=== PATIENT | female | born 1950 | race Caucasian/White ===

== ENCOUNTER → 2023-01-13 | Outpatient (CLI) | payer MEDICARE, BC, SELFPAY ==
--- NOTE | 2023-01-13 12:50 | US_ITS ---
INDICATION: prolapse EXAMINATION: Ultrasound US Pelvis Non-OB Complete TECHNIQUE: Transabdominal sonographic images of the pelvis. COMPARISON: None. FINDINGS: A pessary is seen within the vagina. UTERUS: Anteverted. 8.2 x 2.6 x 5.0 cm. No evidence of a uterine mass or fibroid. Endometrium is unremarkable. Endometrial stripe thickness of 3 mm. RIGHT OVARY: Unremarkable. LEFT OVARY: Not visualized due to overlying bowel gas. FREE FLUID: No significant free fluid. US/Pelvic (Non ) IMPRESSION: 1. Unremarkable appearance of the uterus and right ovary. 2. Nonvisualization of the left ovary. 3. Pessary seen within the vagina. Electronically Signed: Colin Jacobs DO at 0:42 EDT ,
== END | disposition home or self-care (01) ==
LOC: US 12:50
PROVIDERS: PCP Family Medicine; Referring Provider Obstetrics & Gynecology; Visit Provider Obstetrics & Gynecology
DX: N81.2 Incomplete uterovaginal prolapse (principal)
CPT/HCPCS: 76856

== ENCOUNTER 2023-01-21 16:16 | Observation (INO) | payer MEDICARE, BC, SELFPAY ==
--- NOTE | 2023-01-07 10:59 | EKG12_ITS ---
Test Reason : PREOP Blood Pressure : / mmHG Vent. Rate : 065 BPM Atrial Rate : 065 BPM P-R Int : 132 ms QRS Dur : 134 ms QT Int : 470 ms P-R-T Axes : 050 -31 027 degrees QTc Int : 488 ms Normal sinus rhythm Left axis deviation Right bundle branch block Abnormal ECG Confirmed by LIDA OLIVIER, ORTIZ ([id number]), video effects editor HERB ZURITA ([id number]) on 01/08/2023 1:33:26 PM Referred By: Arti Sage Confirmed By:MERARI HILTON MD
[2023-01-07 12:32] LABS: Absolute Lymphocyte Count 1.39 X10^3/uL (0.83-4.51); Basophil# 0.04 X10^3/uL; Basophil% 0.8 % (0-1); Eosinophil# 0.12 X10^3/uL; Eosinophils% 2.4 % (0-5); Hematocrit 39.9 % (37-47); Hemoglobin 12.6 g/dL (12.0-15.0); Lymphocyte # 1.39 X10^3/ul (0.83-4.51); Lymphocyte % 28.4 % (19-41); Mean Corp Hgb Conc 31.6 g/dL (32-36); Mean Corpuscular Hgb 30.3 pg (27.0-32.0); Mean Corpuscular Volume 95.9 fL (81-99); Monocyte# 0.36 X10^3/uL; Monocyte% 7.3 % (0-10); NRBC Flagged by Analyzer 0 % (0-5); Neutrophil # 2.97 X10^3/uL (2.7-7.7); Neutrophil % 60.7 % (47-70); Platelet Count 240 K/mm3 (150-450); RBC Distribution Width SD 49.1 fl (35.1-43.9); Red Blood Count 4.16 M/mm3 (4.2-5.4); White Blood Count 4.9 K/mm3 (4.4-11.0)
[2023-01-07 13:10] LABS: Magnesium 2.5 mg/dL (1.6-2.6)
[2023-01-07 13:14] LABS: AST(SGOT) 34 U/L (15-37); Alanine Aminotransfer ALT/SGPT 49 U/L (13-56); Albumin, Serum 3.9 g/dL (3.2-5.0); Alkaline Phosphatase 104 U/L (45-117); Anion Gap 3 (5-15); BUN 16 mg/dL (7-18); BUN/Creat Ratio 19.3 RATIO (10-20); Calcium,Total 9.1 mg/dL (8.5-10.1); Chloride 108 mmol/L (98-107); Creatinine, Serum 0.83 mg/dL (0.55-1.02); EST Glomerular Filtration Rate 72 mL/min (>60); Est Glom Filt Rate - Afr Amer 87 mL/min (>60); Globulin 3.8 g/dL (2.2-4.2); Glucose 91 mg/dL (74-106); Potassium 4.2 mmol/L (3.5-5.1); Protein, Total 7.7 g/dL (6.4-8.2); Sodium Level 140 mmol/L (136-145); Thyroid Stim Hormone (TSH) 3.15 uIU/mL (0.358-3.74)
--- NOTE | 2023-01-19 09:54 | PCM.HP.BLA ---
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 Required: No Is patient in pain?: No Allergies No Known Allergies Allergy (Unverified 01/07/23 10:31) Medications ascorbate calcium (vitamin C) 500 mg tablet 500 mg PO DAILY 12/15/21 [History Confirmed 01/07/23] hydroxychloroquine 200 mg tablet 200 mg PO BID 12/15/21 [History Confirmed 01/07/23] ibandronate 150 mg tablet (Boniva) 150 mg PO QMONTH 12/15/21 [History Confirmed 01/07/23] levothyroxine 100 mcg capsule 100 mcg PO DAILY 12/15/21 [History Confirmed 01/07/23] metoprolol succinate 25 mg tablet,extended release 24 hr 25 mg PO DAILY 12/15/21 [History Confirmed 01/07/23] vitamins A,C,G-blmr-lilpwv 4,296 mcg-226 mg-90 mg capsule (PreserVision AREDS) 1 cap PO BID 12/15/21 [History Confirmed 01/07/23] PFSH Medical History (Updated 01/07/23 @ 10:[address] Arti Sage MD) Anemia Macular degeneration Myocardial infarction Osteopenia Sicca syndrome Thyroid disorder Surgical History (Updated 12/15/21 @ 10:[address] Arti Sage MD) H/O heart bypass surgery History of History of toe surgery S/P breast biopsy, right S/P hip replacement S/p total knee replacement, bilateral Family History (Updated 12/15/21 @ 10:14 by Faina Carbajal) Mother Breast cancerFather Heart disease Social History (Updated 12/15/21 @ 10:15 by Faina Carbajal) Smoking Status: Never smoker alcohol intake: never substance use type: does not use caffeine: Yes what type of physical activity do you participate in: none seatbelt use: always do you feel safe at home: Yes additional social history: - Ramin CONSTANTINO josselyn combo needs 20 minutes Details: PATRICK TYLER is a 72 year old who presents for preop visit for surgery planning LAVHBSO for prolapse. Female Reproductive History Menopausal Symptoms: No night sweats History 4 Elective abortions Hx Para 3 Spontaneous abortions Hx # Term Pregnancies Ectopic pregnancies Hx # Pregnancies Multiple births # of living children Past Pregnancies Del. Date Name GA/Weeks Outcome Route Bth Weight Gen [facility] Unknown Zhanna Unknown Giorgio Unknown Loretta (may) Unknown Jimenez Delivery Date: Last Updated by: Faina Carbajal lived for 1 hour ROS Const Constitutional: Reports system reviewed and no additional complaints, except as documented; Denies fatigue, headache(s) or night sweats ENT ENT: Reports system reviewed and no additional complaints, except as documented Cardio Card: Denies chest pain Resp Resp: Denies cough or dyspnea GI GI: Denies abdominal pain, bloating, change in stool character, constipation, fecal incontinence, nausea or vomiting : Reports prolapse symptoms, urinary frequency, urinary incontinence, urinary urgency and vaginal dryness; Denies nipple discharge, pelvic pain, sexual dysfunction, vaginal discharge, vaginal odor or vaginal pruritus Musc Musc: Denies arthralgias, back pain or muscle weakness Skin Skin/Breast: Denies alopecia, change in hair, dry skin, breast mass, breast pain, breast skin changes or nipple discharge Neuro Neuro: Reports system reviewed and no additional complaints, except as documented Psych Psych: Denies anxiety or depression Endo Endo: Denies cold intolerance, excessive sweating, heat intolerance or polydipsia Demarcus/Lymph Hematologic/Lymphatic: Denies easy bleeding, Denies easy bruising and Denies lymphadenopathy Exam Const General: cooperative, healthy appearing, comfortable, no acute distress and well developed Orientation: alert [facility] Head: normal to inspection, normocephalic and atraumatic Ears: hearing grossly normal bilaterally and external ears normal Nose: external nose normal and nares normal Face and sinus: normal facial exam Neck Neck: normal visual inspection, full ROM, no lymphadenopathy and trachea midline Thyroid: thyroid normal Resp Effort & Inspection: normal respiratory effort Auscultation: clear to auscultation bilaterally Cardio Rate: regular rate Rhythm: regular rhythm Heart Sounds: S1 normal and S2 normal GI Inspection: normal to inspection and non-distended Palpation: soft, no hepatosplenomegaly, no hepatomegaly, not rigid and nontender General: bladder normal to palpation External Female Exam: abnormal external appearance (atrophic introitus), normal appearance of the urethra and no lesions Urethra: normal appearance of the urethra Speculum Exam - Vagina: abnormal appearance of the vagina, normal vaginal discharge, vagina atrophic and no lesions Speculum Exam - Cervix: normal appearance of the cervix Bimanual Exam- Vagina & Uterus: normal bimanual exam, uterine size normal, bladder normal to palpation, uterine shape normal, uterine mobility normal and non-tender Bimanual Exam- Adnexa, other: normal adnexae, no masses, rectocele, cystocele and vaginal apex descent Pelvic Support: cystocele, rectocele and vaginal apex descent Musc Other: gross motor intact no deficits, full bilateral strength Skin General: no rashes or lesions noted and atrophy Neuro General: patient alert, patient awake, moves all extremities and no focal motor deficits Motor: muscle tone normal throughout Extrem General: normal to inspection and no pedal edema Psych Appearance: grossly normal Mental Status: mental status grossly normal Affect: normal affect Speech and Movement: speech and movement normal Coding Level of Care Code No Charge Diagnoses Incomplete uterovaginal prolapse N81.2 Assessment and Plan Assessment and Plan (1) Incomplete uterovaginal prolapse: Status: Acute Comment: plan LAVHBSO combo case josselyn, Cutting Tool Sharpener recommend remaining on ASA 81mg uninterrupted Plan After discussing the patient's diagnosis and treatment plan options, patient wishes to proceed with surgical management. I have discussed with the patient the risks, benefits, and alternatives of the procedure which include but are not limited to risks of anesthesia, bleeding, infection, possible damage to bowel, bladder, or surrounding vasculature which could lead to additional surgery to evaluate any complications. Patient agrees to procedure and wishes to proceed. ACOG/uptodate references given for additional information regarding procedure.
[2023-01-21] VITALS (19 sets, daily range): BP systolic 94–112; BP diastolic 47–64; PULSE 49–62; RESP 12–18; TEMP 36.1–36.9; O2SAT 91–100; BMI 35.4
--- NOTE | 2023-01-21 | HYST_PTH ---
PATIENT: PATRICK TYLER LOC: MS3 U#:[id number] AGE/SX: 72/F [place] [facility] [place]: Dr. Arti Sage MD : [id number] BED: 1 DIS: 01/22/2023 SPEC #: [id number] RECD: 01/21/23 12:23 STATUS: JOSE RHODES #: [id number] VALERIA: 01/21/23 00:[address]: Arti Sage DEPT: SURGICAL PATHOLOGY RECD BY: Jose Spears ENTERED: 01/21/23 12:24 SP TYPE: HYSTERECT OTHR DR: MD Dr. Andre Schafer MD Tissues: Uterus, NOS Procedures: Surgery Specimen Level V HEADER OPERATION: ERAS, laparoscopic assisted vaginal hysterectomy, salpingo-oophorectomy PRE-OP DIAGNOSIS: Incomplete uterovaginal prolapse TISSUE SUBMITTED: Uterus, cervix, bilateral fallopian tubes, ovaries MICROSCOPIC DIAGNOSIS Uterus, hysterectomy: Cervix - nabothian cysts, mild chronic inflammation and squamous metaplasia. Endometrial polyp - adenomyoma with simple hyperplasia without atypia. Endometrium - inactive endometrium with focal simple cystic hyperplasia without atypia. Myometrium - superficial adenomyosis. Right ovary - corpora albicantia. Right fallopian tube - No pathologic change. Left ovary - corpora albicantia. Left fallopian tube - No pathologic change. AM:jessee 01/22/2023 MICROSCOPIC DESCRIPTION Slides are reviewed. GROSS DESCRIPTION Received in fixative is one container labeled with the patient's name and designated uterus. The specimen consists of a uterus with attached cervix and attached right and left fallopian tubes and ovaries. The uterus with cervix measures 7.5 x 5.5 x 3.0 cm and weighs 50.0 gm. The ectocervix is oval in contour. The endocervical canal measures 2.6 cm in length and is grossly unremarkable. The triangular endometrial cavity measures 3.0 x 2.5 cm. The posterior endometrial surface contains a pink, soft, fleshy polyp measuring 1.4 x 1.0 x 1.0 cm. The myometrium measures 1.5 cm in average thickness and is free of mass lesions. The crinkled yellow-white right ovary measures 2.5 x 1.5 x 0.7 cm. Serial sections do not reveal mass lesions. The right fallopian tube measures 4.5 cm in length and is grossly unremarkable. The left ovary is similar in appearance to the right ovary and measures 2.5 x 1.5 x 0.7 cm. Serial sections do not reveal mass lesions. The left fallopian tube segment measures 4.0 cm in length and 0.4 cm in average diameter and is similar in appearance to the right fallopian tube. [facility] sections are submitted in nine cassettes as follows: 1 - anterior cervix, 2 - posterior cervix, 3 - endometrial polyp, 4?&?5 - anterior myometrial wall, 6 & 7 - posterior myometrial wall, 8 - right fallopian tube and ovary, 9 - left fallopian tube and ovary. / AM:jessee 01/21/2023 TC:1 CPT: 22397
[2023-01-21 06:32] LABS: Bedside Glucose 68 mg/dL (74-106)
[2023-01-21] MEDS: dexAMETHasone 4 MG/ML Vial 8 MG IV (06:49)
[2023-01-21] MEDS: Lactated Ringers 1,000 ML 40 ML IV ×2 (06:49→08:00)
[2023-01-21] MEDS: Enoxaparin 40 MG/0.4 ML Syringe SC (06:52)
[2023-01-21] MEDS: Celecoxib 200 MG Capsule 400 MG PO (06:54)
[2023-01-21] MEDS: Gabapentin 600 MG Tablet PO (06:55)
[2023-01-21] MEDS: Acetaminophen 500 MG Tablet 1000 MG PO (06:55)
[2023-01-21] MEDS: Magnesium 1 GM over 15 mins IV (06:56)
[2023-01-21] MEDS: Cefazolin 2 GM in 0.9% Normal Saline 100 ML IV (07:23)
--- NOTE | 2023-01-21 07:58 | PCM.OPRPT ---
Problems Associated Problem List Diagnoses (1) Incomplete uterovaginal prolapse: Report of Operation Date of Procedure: 01/21/23 Pre-Operative Diagnosis: see A/P Post-Operative Diagnosis: same Surgery/Procedure Performed:: DIAN Description of Surgical Findings:: atrophy and prolapse Surgeon: Arti Sage Type of Anesthesia: General Specimen's removed: uterus, tubes, ovaries Drains: alonso Fluids Replaced: crystalloid Description of Procedure: Patient received preoperative antibiotics and SCDs were on preoperatively. Patient was taken back to the operating room and placed in the dorsal lithotomy position. General anesthesia was induced and patient was prepped and draped in normal sterile fashion. Uterine manipulator was placed inside the uterus and Alonso catheter placed in the bladder. The umbilicus was grasped with towel clamps and an intraumbilical incision was made after injecting with quarter percent Marcaine and a Veress needle entered into the abdomen confirmed to be intra-abdominal with a low opening pressure. Abdomen was insufflated with CO2 gas and the Veress needle removed and the 5 mm trocar was placed under direct visualization without complication. Right and left lower quadrants were transilluminated and injected with quarter percent Marcaine and 5 mm ports placed under direct visualization. omental to anterior abdominal wall adhesion was taken down with LigaSure without complication. Pelvis was well visualized see operative findings for additional information. Bilateral fallopian tubes and ovaries were identified and transected across the IP ligament with the LigaSure device. The broad ligament was opened up by transecting the round ligament bilaterally and skeletonizing the uterine vessels bilaterally and creating a bladder flap using the LigaSure device. The uterine arteries were transected bilaterally with good visualization of the bladder and the ureters were seen to be inferior lateral to the operative area. Attention was then paid to the vaginal portion of the procedure and the cervix was grasped with Lorena clamps and circumferentially injected with dilute vasopressin. A circumferential incision was made and the vaginal mucosa was mobilized off posteriorly and the cul-de-sac entered into sharply and a longneck speculum placed. The anterior cul-de-sac was then identified and entered into sharply. The uterosacral ligaments were clamped cut and suture ligated with 0 Monocryl bilaterally followed by the cardinal ligaments which were clamped cut and suture ligated bilaterally with 0 Monocryl. The uterus serially descended and was removed without difficulty. Pelvic sidewall pedicles were checked and noted to have excellent hemostasis. The vaginal mucosa was reapproximated incorporating the posterior peritoneum. This was reapproximated using 0 Vicryl [id number] sutures. Excellent hemostasis was noted. The pelvis and cul-de-sac were well visualized and no significant active bleeding noted . Pressure was taken down and the areas visualized and noted of excellent hemostasis. All ports were removed under direct visualization without complication and the abdomen was desufflated of air. The instruments were removed from the abdomen and the vaginal sweep was negative. Port sites on the abdomen were closed with 4-0 Monocryl interrupted sutures and Steri's and windows were applied. see dr toure note for her portion of the procedure Grafts/Implants Used: none Complications none Admit VTE Documentation VTE Present on Admission: No VTE Mechan Device Prophylaxis: SCD's VTE Pharm Prophylaxis ordered?: Yes Procedures Urinary/Genital [id number]: 95001 LAVH+BS/O <250gr Uterus
--- NOTE | 2023-01-21 08:50 | OP.PCM_ITS ---
Report of Operation Date of Procedure: 01/21/23 Pre-Operative Diagnosis: Incomplete uterovaginal prolapse, urethral hypermobili ty, stress urinary incontinence Post-Operative Diagnosis: Same Surgery/Procedure Performed:: Posterior repair, bilateral sacrospinous ligament fixation with dermis, mid urethral sling, cystoscopy with bilateral ureteral catheterization Surgeon: Ammy Luna Type of Anesthesia: General Estimated Blood Loss (mL): 50 cc Description of Procedure: The patient is a 72-year-old female with pelvic organ prolapse who has undergone testing preoperatively and now presents for surgical intervention. The patient was taken to the operating room and placed on the operating room table. Anesthesia monitored the head, neck, airway, IV access and vital signs throughout the case. Once anesthesia was appropriately administered, the patient was placed into dorsolithotomy and Trendelenburg position. She was appropriately prepped and draped. A Cervantes catheter was placed under sterile conditions. Dr. Sage performed her portion of the procedure, and the patient was turned over to oh. The Cervantes catheter was removed and the cystoscope was inserted through the urethra under direct visualization into the urinary bladder. The bladder was visualized in its entirety and found to be without evidence of injury or foreign body. A whistle-tip catheter was used to gently cannulate each ureteral orifice and advanced to 20 cm bilaterally without evidence of injury, obstruction or bleeding. At this time the cystoscope and the whistle-tip catheter was removed and the Cervantes catheter was replaced. The way the cuff line was positioned, access to the sacrospinous ligaments was better anatomically from the posterior. The posterior vaginal wall submucosa was injected with lidocaine with epinephrine for hydrostatic dissection and hemostatic control. A midline incision was made and sharp and blunt dissection was performed bilaterally until the apex was reached. The ischial spines were palpable bilaterally and the sacrospinous ligaments were identified and freed from surrounding tissues. There is no evidence of ureter lying across either 1. Using the Emmett device, the O Ethibond suture was passed through the ligament and out into the vaginal space. The sutures were then passed through the dermis and tied into position. At this time the cystoscopy was once again repeated with bilateral ureteral catheterization revealing no evidence of obstruction. Attention was turned back towards the posterior repair with a Cervantes catheter carmella ng replaced. The dermis was trimmed to length and sutured into position to the white lines bilaterally. The perineal body was brought together using interrupted 2-0 Vicryl sutures. At this time the Ethibond sutures were brought through the apex and full-thickness fashion through the vaginal mucosa bilaterally. The midline incision was then closed with running interlocking 2-0 Vicryl. Bilaterally the Ethibond sutures were tied into position. At this time, the apical and posterior prolapse was reduced. It became clear that there was very minimal anterior defect, not enough to provide a successful improvement in the anatomy with repair. The decision was made to abort this portion of the repair. The mid urethra was isolated and injected submucosally with lidocaine. A midline incision was made. Sharp and blunt dissection was performed on either side of the urethra with care being taken to avoid entrance into the urethra or the vaginal mucosa. Using the trocars provided with the Altis mid urethral sling, the mesh was put into position through the obturator complexes bilaterally and was positioned in a flat nature against the urethra. The tensioning suture was then cut. The incision was closed using running interlocking 2-0 Vicryl. At this time the Cervantes catheter was removed and once again a cystoscopy was performed revealing no evidence of injury or foreign body within the urinary bladder or the urethra. Good coaptation was seen at the level of the sling. The cystoscope was then removed and the Cervantes catheter was reinserted and the balloon inflated. At this time the vagina was packed with plain packing and estrogen cream. She was awakened and taken to the recovery room in good condition. There were no complications during this procedure. Grafts/Implants Used: Dermis, Altis mid urethral sling Complications None Admit VTE Documentation VTE Pharm Prophylaxis ordered?: Yes
--- NOTE | 2023-01-21 08:57 | DCINST_ITS ---
Discharge Instructions Diet Discharge Diet: No restrictions Activity Discharge Activity: May Shower and May Take a Tub Bath (No tub bathing, swimming or hot tubs) May resume sexual activity in: 8 weeks Dressing / Incision Call your doctor if your incision/area has: Continuous Slow Oozing, Sudden Increased Bleeding, Increased Pain/ Swelling, Increased Redness, Foul Smelling Discharge and Swelling at the incision site Call your doctor if you observe: Fever of 101 or Higher, Inability to urinate and Inability to have a bowel movement Follow Up Care Please Follow Up With: Ammy Luna MD When: The office will call to make arrangements. Also follow-up with Dr. Sage. Test Results: Test results from this visit will be discussed in further detail at your follow- up appointment, if applicable. Discharge Plan Admission Admit Date/Time: 01/21/23 16:16 Attending Provider: Arti Sage Primary Care Provider: Andre Sanchez Consulting Providers: Ammy Luna; Jun Ching Discharge Orders/Prescriptions Prescriptions: New oxycodone-acetaminophen [Percocet] 5-325 mg tablet 1 tab PO Q8H PRN (Reason: pain) 5 Days Qty: 14 0RF cephalexin [cephalexin] 500 mg capsule 500 mg PO Q12 3 Days Qty: 6 0RF Continued levothyroxine 100 mcg capsule 100 mcg PO DAILY metoprolol succinate 25 mg tablet extended release 24 hr 25 mg PO DAILY hydroxychloroquine 200 mg tablet 200 mg PO BID PreserVision AREDS 14,320-226-200 [id number]-iu-[id number] capsule 1 cap PO BID ibandronate [Boniva] 150 mg tablet 150 mg PO QMONTH calcium phos,dibas-vitamin D3 77-400 mg-unit tablet 1 tab PO DAILY Restasis MultiDose 0.05 % drops 1 drp EACH EYE Q12H Referrals / Follow Up: Andre Sanchez MD [Primary Care Provider] - Disposition Disposition (needs filled in before D/C Order can be placed): Home, Self Care
[2023-01-21] MEDS: Bupivacaine 0.25% 30 ML Vial (09:15)
[2023-01-21] MEDS: Vasopressin 20 UNITS/ML Vial (10:00)
[2023-01-21] MEDS: Ondansetron 4 MG/2 ML Vial IV (10:18)
[2023-01-21] MEDS: Estrogens,Conj. 1 Tube 1 DOSE (10:30)
[2023-01-21] MEDS: Lactated Ringers 1,000 ML 100 ML IV ×2 (11:40→21:40)
[2023-01-21 12:24] LABS: Absolute Lymphocyte Count 0.51 X10^3/uL (0.83-4.51); Absolute Neutrophil Count 3.2 X10^3/uL (2.0-7.7); Basophil# 0.01 X10^3/uL; Basophil% 0.3 % (0-1); Eosinophil# 0.02 X10^3/uL; Eosinophils% 0.5 % (0-5); Hematocrit 36.4 % (37-47); Hemoglobin 11.8 g/dL (12.0-15.0); Lymphocyte # 0.51 X10^3/ul (0.83-4.51); Lymphocyte % 13.5 % (19-41); Mean Corp Hgb Conc 32.4 g/dL (32-36); Mean Corpuscular Hgb 31.2 pg (27.0-32.0); Mean Corpuscular Volume 96.3 fL (81-99); Mean Platelet Vol. 10.5 fl (6.2-12.0); Monocyte# 0.06 X10^3/uL; Monocyte% 1.6 % (0-10); NRBC Flagged by Analyzer 0 % (0-5); Neutrophil # 3.17 X10^3/uL (2.7-7.7); Neutrophil % 83.8 % (47-70); POSITIVE DIFFERENTIAL YES; Platelet Count 170 K/mm3 (150-450); RBC Distribution Width CV 14.1 % (11.6-14.6); Red Blood Count 3.78 M/mm3 (4.2-5.4); White Blood Count 3.8 K/mm3 (4.4-11.0)
[2023-01-21 12:25] LABS: Differential Indicated SCAN CRITERIA MET
[2023-01-21 12:34] LABS: Anion Gap 5 (5-15); BUN 15 mg/dL (7-18); BUN/Creat Ratio 17.6 RATIO (10-20); Calcium,Total 8.2 mg/dL (8.5-10.1); Chloride 110 mmol/L (98-107); Creatinine, Serum 0.85 mg/dL (0.55-1.02); EST Glomerular Filtration Rate 70 mL/min (>60); Est Glom Filt Rate - Afr Amer 85 mL/min (>60); Estimated Creatinine Clearance 59.89 ml/min; Glucose 121 mg/dL (74-106); Magnesium 2.7 mg/dL (1.6-2.6); Potassium 3.8 mmol/L (3.5-5.1); Sodium Level 141 mmol/L (136-145)
[2023-01-21 12:53] LABS: Troponin-I HS 8 pg/mL (3.0-54.0)
--- NOTE | 2023-01-21 12:58 | SUR.PHASEI ---
MART Roa at bedside to apply new dressing to left lap site. after 30 mins of pressure being held. per Dr. Alona roa will come over when she is available.
--- NOTE | 2023-01-21 13:27 | PCM.PN.BLA ---
Progress Note cardiac exam WNL, RRR CTAB t wave inversions seen on ekg, troponin negative, discussed with hospitalist- to come evaluate for postop placement on floor and serial monitoring
--- NOTE | 2023-01-21 13:43 | PCM.CONS.GEN ---
Assessment & Plan Assessment/Plan (1) Abnormal EKG: PLAN: EKG today showed normal sinus rhythm with concern for Coyry-Ssghmdgyr-[id number]. EKG performed this month on third showed normal sinus rhythm with right bundle branch block. NSTEMI evidence of any right bundle branch block at this time. No other acute changes noted. Fainting, patient's EKG actually does look better with the exception of the delta wave. Things reasonable to the patient on telemetry and cycle troponins that have been ordered already. If there has been evidence of significant cardiac enzyme elevation, may be reasonable to consult cardiology for further evaluation but patient is currently asymptomatic. Recommend just monitor troponins and patient's clinical status. At this point, nothing overtly concerning for cardiac evaluation. 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 PLAN: Plan Other chronic conditions Sjogren syndrome: Continue with eyedrops Hypothyroidism: Continue levothyroxine. Osteopenia s/p LAVHBSO and uterovaginal prolapse repair: per Ear Specialist and Thank you for the consult. The Hospitalist service will follow along with you. HPI Consult Data Date of Consult: 01/21/23 HPI Narrative Reason for Consultation: abnormal EKG HPI Narrative: PATRICK TYLER, is a 72 F who presents for surgery for a laparoscopic vaginal hysterectomy and BSO by gynecology and then urology performed a posterior repair of bilateral sacrospinous ligament fixation with dermis, mid urethral sling, cystoscopy with bilateral ureteral catheterizations. In the PACU, patient was noted to have some EKG changes which is concerning given the patient's history coronary bypass. She did have a troponin that was negative x1. 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 Patient did have vessels bypass and states that the the bypasses are patent but as well as the vessels themselves are patent as well due to the vasculitis. She was unable to tell me what specific vasculitis that she had. [facility] Medical History Anemia Arthritis Bladder disease Cardiology follow-up encounter Dry mouth History of echocardiogram History of stress test Hypertension Leg cramps Macular degeneration Myocardial infarction Non-smoker Osteopenia Sicca syndrome Thyroid disorder Wears dentures Home Medications hydroxychloroquine 200 mg tablet 200 mg PO BID 12/15/21 [History Last Taken 01/21/23] ibandronate 150 mg tablet (Boniva) 150 mg PO QMONTH 12/15/21 [History Last Taken Unknown] levothyroxine 100 mcg capsule 100 mcg PO DAILY 12/15/21 [History Last Taken 01/21/23] metoprolol succinate 25 mg tablet,extended release 24 hr 25 mg PO DAILY 12/15/21 [History Last Taken 01/21/23] vitamins A,C,B-tffo-brtmbb 4,296 mcg-226 mg-90 mg capsule (PreserVision AREDS) 1 cap PO BID 12/15/21 [History Last Taken Unknown] calcium phosphate,dibasic 77 mg-vitamin D3 400 unit tablet 1 tab PO DAILY 01/07/23 [History Last Taken Unknown] cephalexin 500 mg capsule 500 mg PO Q12 post-operative 3 days #6 CAPSULES 01/21/23 [Rx Last Taken Unknown] cyclosporine 0.05 % eye drops (Restasis MultiDose) 1 drp EACH EYE Q12H 01/21/23 [History Last Taken Unknown] oxycodone-acetaminophen 5 mg-325 mg tablet (Percocet) 1 tab PO Q8H PRN pain 5 days #14 tabs 01/21/23 [Rx Last Taken Unknown] Allergy/AdvReac Type Severity Reaction Status Date / Time No Known Allergies Allergy Verified 01/21/23 06:24 Family History Mother Breast cancer Father Heart disease Surgical History H/O heart bypass surgery History of bilateral hip replacements History of breast biopsy History of History of heart surgery History of knee joint replacement History of knee replacement procedure of left knee History of knee replacement procedure of right knee History of toe surgery History of tonsillectomy S/P breast biopsy, right S/P hip replacement S/p total knee replacement, bilateral Social History Smoking Status: Never smoker alcohol intake: never substance use type: does not use caffeine: Yes what type of physical activity do you participate in: none seatbelt use: always do you feel safe at home: Yes additional social history: - Ramin ROS ROS Narrative All review of systems were negative except as mentioned above in the history of present illness and the other review of systems. Physical Exam Const alert and no apparent distress HEENT normocephalic, head/scalp atraumatic and hearing grossly normal bilaterally Resp normal respiratory effort, no retractions, no use of accessory muscles and clear to auscultation bilaterally Cardio regular rate, regular rhythm, S1 normal heart sound and S2 normal heart sound GI normal to inspection, nondistended, normoactive bowel sounds, soft to palpation, non-tender and non-distended Extremity normal to inspection and no clubbing, cyanosis or edema Psych affect normal Lab / Micro Data Attestation: I reviewed the patient's lab results. 01/21/23 12:16 01/21/23 12:16 Labs: Laboratory Results - last 24 hr 01/21/23 06:14: POC Glucose 68 L 01/21/23 12:16: WBC 3.8 L, RBC 3.78 L, Hgb 11.8 L, Hct 36.4 L, MCV 96.3, MCH 31.2, MCHC 32.4, RDW Std Deviation 50.0 H, RDW Coeff of Susan 14.1, Plt Count 170, MPV 10.5, Immature Gran % (Auto) 0.300, Neut % (Auto) 83.8 H, Lymph % (Auto) 13.5 L, [place] % (Auto) 1.6, Eos % (Auto) 0.5, Baso % (Auto) 0.3, Absolute Neuts (auto) 3.2, Absolute Lymphs (auto) 0.51 L, Nucleated RBC % 0, Diff Path Review October, Sodium 141, Potassium 3.8, Chloride 110 H, Carbon Dioxide 26.0, Anion Gap 5, BUN 15, Creatinine 0.85, Estim Creat Clear Calc 59.89, Est GFR (MDRD) Af Amer 85, Est GFR (MDRD) Non-Af 70, BUN/Creatinine Ratio 17.6, Glucose 121 H, Calcium 8.2 L, Magnesium 2.7 H, Troponin I High Sens 8 EKG Initial EKG: Attestation: I personally reviewed and interpreted this EKG as follows: Prior EKG tracings: available for review EKG Rhythm Intrepretation: Sinus Rhythm (Delta wave noted.) Charges/Coding Visit Charges Office Visits / Consults: 00156 OP Consult L4
--- NOTE | 2023-01-21 13:50 | SUR.PHASEI ---
updated pt's of status of pt. he is aware we will give him another call when her room is ready.
[2023-01-21 14:43] LABS: Pathologist Review Reviewed
[2023-01-21 14:58] LABS: Troponin-I HS 10 pg/mL (3.0-54.0)
[2023-01-21] MEDS: Cefazolin 1 GM/50 ML BAG IV (15:24)
[2023-01-21] MEDS: Hydroxychloroquine 200 MG Tablet PO (17:45)
[2023-01-21 18:29] LABS: Troponin-I HS 7 pg/mL (3.0-54.0)
--- NOTE | 2023-01-21 20:21 | PCM.PN.BLA ---
Progress Note left lower port site bleeding- dermabond removed and interrupted stitches placed after prepping with betadine and injecting with lidocaine. hemostatic, pressure dressing also applied and area cleansed. binder will be reapplied.
[2023-01-21] MEDS: Lidocaine 1% (20 ml mdv) 20 ML Vial INFILT (22:17)
[2023-01-21] MEDS: Docusate Sodium 100 MG Capsule 200 MG PO (22:17)
[2023-01-21] MEDS: Smz/Tmp Ds Tablet 1 TABLET PO (22:17)
[2023-01-21] MEDS: Acetaminophen 325 MG Tablet 650 MG PO (22:17)
[2023-01-22] MEDS: Cefazolin 1 GM/50 ML BAG IV (00:23)
[2023-01-22 03:16] VITALS: BP 107/55; PULSE 68; RESP 16; TEMP 36.7; O2SAT 97; BMI 35.4
[2023-01-22] MEDS: Levothyroxine 100 MCG Tablet PO (06:37)
[2023-01-22] MEDS: Enoxaparin 40 MG/0.4 ML Syringe SC (06:37)
[2023-01-22 06:45] VITALS: BP 103/53; PULSE 72; RESP 18; TEMP 36.1; O2SAT 95; BMI 35.4
[2023-01-22 07:14] LABS: Hematocrit 35.2 % (37-47); Hemoglobin 11.1 g/dL (12.0-15.0); Mean Corp Hgb Conc 31.5 g/dL (32-36); Mean Corpuscular Hgb 30.9 pg (27.0-32.0); Mean Corpuscular Volume 98.1 fL (81-99); Mean Platelet Vol. 11.4 fl (6.2-12.0); Platelet Count 199 K/mm3 (150-450); RBC Distribution Width CV 14.2 % (11.6-14.6); RBC Distribution Width SD 51.9 fl (35.1-43.9); Red Blood Count 3.59 M/mm3 (4.2-5.4); White Blood Count 8.7 K/mm3 (4.4-11.0)
--- NOTE | 2023-01-22 07:21 | PCM.PN.OB ---
Subjective Subjective Patient doing well without complaints. Tolerating PO. Ambulating without difficulty. Denies chest pain, shortness of breath, calf pain/swelling, fevers, chills, lightheadedness. left port site stable. Objective Data Objective Data Vital Signs: Vital Signs Temp Pulse Resp BP Pulse Ox O2 Del Method O2 Flow Rate 97.0 F L 72 18 103/53 L 95 Room Air 2 01/22/23 06:45 01/22/23 06:45 01/22/23 06:45 01/22/23 06:45 01/22/23 06:45 01/22/23 06:45 01/21/23 15:16 Oxygen Flow Rate (L/min) 2 Oxygen Delivery Method Room Air Weight: 226 lb 3.108 oz Body Mass Index (BMI) 35.4 Intake & Output: Intake and Output for Last 24 Hours 01/20/23 01/21/23 01/22/23 23:59 23:59 23:59 Intake Total 4012 / 4012 50 / 50 Output Total 2250 / 2250 750 / 750 Balance 1762 / 1762 -700 / -700 Lab / Micro Data 01/22/23 06:00 01/22/23 06:00 Labs: Laboratory Results - last 24 hr 01/21/23 12:16: WBC 3.8 L, RBC 3.78 L, Hgb 11.8 L, Hct 36.4 L, MCV 96.3, MCH 31.2, MCHC 32.4, RDW Std Deviation 50.0 H, RDW Coeff of Susan 14.1, Plt Count 170, MPV 10.5, Immature Gran % (Auto) 0.300, Neut % (Auto) 83.8 H, Lymph % (Auto) 13.5 L, [place] % (Auto) 1.6, Eos % (Auto) 0.5, Baso % (Auto) 0.3, Absolute Neuts (auto) 3.2, Absolute Lymphs (auto) 0.51 L, Nucleated RBC % 0, Diff Path Review Reviewed, Sodium 141, Potassium 3.8, Chloride 110 H, Carbon Dioxide 26.0, Anion Gap 5, BUN 15, Creatinine 0.85, Estim Creat Clear Calc 59.89, Est GFR (MDRD) Af Amer 85, Est GFR (MDRD) Non-Af 70, BUN/Creatinine Ratio 17.6, Glucose 121 H, Calcium 8.2 L, Magnesium 2.7 H, Troponin I High Sens 8 01/21/23 14:20: Troponin I High Sens 10 01/21/23 17:40: Troponin I High Sens 7 01/22/23 06:00: WBC 8.7, RBC 3.59 L, Hgb 11.1 L, Hct 35.2 L, MCV 98.1, MCH 30.9, MCHC 31.5 L, RDW Std Deviation 51.9 H, RDW Coeff of Susan 14.2, Plt Count 199, MPV 11.4 ROS Constitutional Constitutional: Reports systems reviewed and no addt'l complaints, except as documented Cardiovascular Cardiovascular: Reports systems reviewed and no addt'l complaints, except as documented Respiratory/Chest Respiratory/Chest: Reports systems reviewed and no addt'l complaints, except as documented Gastrointestinal Gastrointestinal: Reports systems reviewed and no addt'l complaints, except as documented Physical Exam Const alert, oriented x3 and no apparent distress HEENT Head and Scalp: atraumatic Resp normal respiratory effort GI soft to palpation and non-tender Assessment & Plan (1) Incomplete uterovaginal prolapse: COMMENT: plan DIAN arcos, Administrative Tech recommend remaining on ASA 81mg uninterrupted (2) S/P laparoscopic assisted vaginal hysterectomy (LAVH): COMMENT: dian arcos PLAN: Plan patient is s/p lavhbso POD 1 1. routine ERAS protocol postop care- increase ambulation, encourage oral intake and oral control of pain. lovenox and scds for dvt prophylaxis, patient stable for discharge to home. had ekg changes but negative cardiac enzymes, appreciate meidcine consult. sp reclosure of left port site- additional antibiotics given temporarily, patient going home on 3 days of keflex, reviewed precautions for risk of infection, will follow up in office in 1 week
[2023-01-22 07:33] LABS: Anion Gap 2 (5-15); BUN 14 mg/dL (7-18); BUN/Creat Ratio 20.3 RATIO (10-20); Calcium,Total 8.4 mg/dL (8.5-10.1); Chloride 113 mmol/L (98-107); Creatinine, Serum 0.69 mg/dL (0.55-1.02); EST Glomerular Filtration Rate 89 mL/min (>60); Est Glom Filt Rate - Afr Amer 108 mL/min (>60); Estimated Creatinine Clearance 50.91 ml/min; Glucose 107 mg/dL (74-106); Potassium 4.4 mmol/L (3.5-5.1); Sodium Level 142 mmol/L (136-145)
[2023-01-22 07:35] VITALS: O2SAT 97
--- NOTE | 2023-01-22 07:39 | PCM.PN.GU ---
Subjective Subjective Doing well, no issues over night. No chest pain, shortness of breath, abdominal pain, nausea vomiting or calf pain. Objective Data Objective Data Vital Signs: Vital Signs Temp Pulse Resp BP Pulse Ox O2 Del Method O2 Flow Rate 97.0 F L 72 18 103/53 L 95 Room Air 2 01/22/23 06:45 01/22/23 06:45 01/22/23 06:45 01/22/23 06:45 01/22/23 06:45 01/22/23 06:45 01/21/23 15:16 Oxygen Flow Rate (L/min) 2 Oxygen Delivery Method Room Air Weight: 102.6 kg Body Mass Index (BMI) 35.4 Intake & Output: Intake and Output for Last 24 Hours 01/20/23 01/21/23 01/22/23 23:59 23:59 23:59 Intake Total 4012 / 4012 50 / 50 Output Total 2250 / 2250 750 / 750 Balance 1762 / 1762 -700 / -700 Lab / Micro Data 01/22/23 06:00 01/22/23 06:00 Labs: Laboratory Results - last 24 hr 01/21/23 12:16: WBC 3.8 L, RBC 3.78 L, Hgb 11.8 L, Hct 36.4 L, MCV 96.3, MCH 31.2, MCHC 32.4, RDW Std Deviation 50.0 H, RDW Coeff of Susan 14.1, Plt Count 170, MPV 10.5, Immature Gran % (Auto) 0.300, Neut % (Auto) 83.8 H, Lymph % (Auto) 13.5 L, [place] % (Auto) 1.6, Eos % (Auto) 0.5, Baso % (Auto) 0.3, Absolute Neuts (auto) 3.2, Absolute Lymphs (auto) 0.51 L, Nucleated RBC % 0, Diff Path Review Reviewed, Sodium 141, Potassium 3.8, Chloride 110 H, Carbon Dioxide 26.0, Anion Gap 5, BUN 15, Creatinine 0.85, Estim Creat Clear Calc 59.89, Est GFR (MDRD) Af Amer 85, Est GFR (MDRD) Non-Af 70, BUN/Creatinine Ratio 17.6, Glucose 121 H, Calcium 8.2 L, Magnesium 2.7 H, Troponin I High Sens 8 01/21/23 14:20: Troponin I High Sens 10 01/21/23 17:40: Troponin I High Sens 7 01/22/23 06:00: WBC 8.7, RBC 3.59 L, Hgb 11.1 L, Hct 35.2 L, MCV 98.1, MCH 30.9, MCHC 31.5 L, RDW Std Deviation 51.9 H, RDW Coeff of Susan 14.2, Plt Count 199, MPV 11.4, Sodium 142, Potassium 4.4, Chloride 113 H, Carbon Dioxide 27.0, Anion Gap 2 L, BUN 14, Creatinine 0.69, Estim Creat Clear Calc 50.91, Est GFR (MDRD) Af Amer 108, Est GFR (MDRD) Non-Af 89, BUN/Creatinine Ratio 20.3 H, Glucose 107 H, Calcium 8.4 L Physical Exam Const alert and oriented x3 General Appearance: cooperative and comfortable Resp normal respiratory effort, normal air movement and no retractions GI soft to palpation, non-tender and non-distended Narrative: Cervantes catheter and vaginal packing both removed without incident. Neuro oriented x3 and CN's II-XII intact bilaterally Psych mental status grossly normal Assessment & Plan Assessment/Plan (1) S/P laparoscopic assisted vaginal hysterectomy (LAVH): (2) Incomplete uterovaginal prolapse: PLAN: Plan Trial of void today Home later today if okay with medicine
--- NOTE | 2023-01-22 08:10 | PN.HOSP_ITS ---
Reason for Visit Reason for Visit: Diagnoses Sjogren syndrome, unspecified (01/21/23) Incomplete uterovaginal prolapse (01/21/23) Abnormal electrocardiogram [ECG] [EKG] (01/21/23) Encounter for other preprocedural examination (01/21/23) Acquired absence of both cervix and uterus (01/21/23) Objective Data Objective Data Vital Signs: Vital Signs Temp Pulse Resp BP Pulse Ox O2 Del Method O2 Flow Rate 97.0 F L 72 18 103/53 L 97 Room Air 2 01/22/23 06:45 01/22/23 06:45 01/22/23 06:45 01/22/23 06:45 01/22/23 07:35 01/22/23 07:35 01/21/23 15:16 Oxygen Flow Rate (L/min) 2 Oxygen Delivery Method Room Air Weight: 226 lb 3.108 oz Body Mass Index (BMI) 35.4 Intake & Output: Intake and Output for Last 24 Hours 01/20/23 01/21/23 01/22/23 23:59 23:59 23:59 Intake Total 4012 / 4012 50 / 50 Output Total 2250 / 2250 750 / 750 Balance 1762 / 1762 -700 / -700 Lab / Micro Data 01/22/23 06:00 01/22/23 06:00 Labs: Laboratory Results - last 24 hr 01/21/23 12:16: WBC 3.8 L, RBC 3.78 L, Hgb 11.8 L, Hct 36.4 L, MCV 96.3, MCH 31.2, MCHC 32.4, RDW Std Deviation 50.0 H, RDW Coeff of Susan 14.1, Plt Count 170, MPV 10.5, Immature Gran % (Auto) 0.300, Neut % (Auto) 83.8 H, Lymph % (Auto) 13.5 L, [place] % (Auto) 1.6, Eos % (Auto) 0.5, Baso % (Auto) 0.3, Absolute Neuts (auto) 3.2, Absolute Lymphs (auto) 0.51 L, Nucleated RBC % 0, Diff Path Review Reviewed, Sodium 141, Potassium 3.8, Chloride 110 H, Carbon Dioxide 26.0, Anion Gap 5, BUN 15, Creatinine 0.85, Estim Creat Clear Calc 59.89, Est GFR (MDRD) Af Amer 85, Est GFR (MDRD) Non-Af 70, BUN/Creatinine Ratio 17.6, Glucose 121 H, Calcium 8.2 L, Magnesium 2.7 H, Troponin I High Sens 8 01/21/23 14:20: Troponin I High Sens 10 01/21/23 17:40: Troponin I High Sens 7 01/22/23 06:00: WBC 8.7, RBC 3.59 L, Hgb 11.1 L, Hct 35.2 L, MCV 98.1, MCH 30.9, MCHC 31.5 L, RDW Std Deviation 51.9 H, RDW Coeff of Susan 14.2, Plt Count 199, MPV 11.4, Sodium 142, Potassium 4.4, Chloride 113 H, Carbon Dioxide 27.0, Anion Gap 2 L, BUN 14, Creatinine 0.69, Estim Creat Clear Calc 50.91, Est GFR (MDRD) Af Amer 108, Est GFR (MDRD) Non-Af 89, BUN/Creatinine Ratio 20.3 H, Glucose 107 H, Calcium 8.4 L Physical Exam Narrative Detailed history taken. Patient does not have a history of chest pain pressure or tightness. She denies prior history of arrhythmia. She has history of two-vessel CABG in the past due to vasculitis. Her bypasses are patent as per the patient. Cervantes catheter was discontinued by urologist today. Patient states he also has murmur. Physical exam General: Alert, Oriented x3, Cooperative HEENT: Atraumatic, PERRLA, EOMI, Normocephalic Oral: No Gingival or Mucosal Lesions/ Ulcerations Neck: Supple, No JVD, Negative Carotid Bruits Lungs: Air entry diminished in bilateral lung bases. No crepitation/rhonchi Cardiovascular: Regular rate, Regular Rhythm, Normal S1, Normal S2, systolic murmur LLSB. Abdomen: Port dressings are dry. Mild tenderness expected. No guarding/rigidity. Bowel sounds sluggish. Non-Distended : Status post vaginal hysterectomy and bilateral salpingo-oophorectomy. Cervantes catheter removed. No renal angle tenderness. No suprapubic tenderness. Extremities: No edema, Capillary Refill Less than 3 Seconds Skin: No rashes, No breakdown Musculoskeletal: No Tenderness to Palpation of Joints or Extremities Neurological: Cranial nerves II-XII grossly intact, DTR 2+/4. No acute focal neurological deficit. Psych/Mental Status: Normal Affect, Appropriate. Assessment & Plan Assessment/Plan (1) Abnormal EKG: PLAN: The hospitalist team is following the patient as information systems consultant for perioperative management of laparoscopic-assisted vaginal hysterectomy and BSO was used and urologist. EKG on 01/21 shows sinus bradycardia 50/min, QRS 128 ms, QTc 519 ms delta wave on single V3 lead V3. EKG performed on 07 January 2023 showed normal sinus rhythm with right bundle branch block at 65 beats.No other acute changes noted. Repeat EKG done today shows normal sinus rhythm at 70 bpm, RBBB, LAD and LVH, chronic changes. No delta wave seen. She follows with Dr. Thompson, telemetry monitor in all. I do not think patient has WPW syndrome. Serial troponins are negative. 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 Patient advised to follow-up with her telemetry monitor. Patient is medically stable from medicine point of view for discharge. PLAN: Plan Other chronic conditions * Sjogren syndrome: Continue with eyedrops * Hypothyroidism: Continue levothyroxine. * Osteopenia s/p LAVHBSO and uterovaginal prolapse repair: per Digital Strategist and Thank you for the consult. The Hospitalist service will follow along with you. Charges/Coding Visit Charges Inpatient E&M: 22319 Subs Hosp L2
[2023-01-22] MEDS: Smz/Tmp Ds Tablet 1 TABLET PO (09:11)
[2023-01-22] MEDS: Hydroxychloroquine 200 MG Tablet PO (09:13)
[2023-01-22] MEDS: Docusate Sodium 100 MG Capsule 200 MG PO (09:13)
[2023-01-22 09:19] VITALS: BP 104/39; PULSE 70; RESP 18; TEMP 36.5; O2SAT 95
[2023-01-22 09:23] VITALS: O2SAT 96
--- NOTE | 2023-01-22 10:41 | NURSING ---
Pt voided 450cc of urine and then this nurse bladder scanned her for 144cc. This RN called [phone], the phone number given and spoke with Sandy at Dr. Luna's office who informed this nurse that She will let Dr. Luna know.
[2023-01-22 11:16] VITALS: BMI 35.4
--- NOTE | 2023-01-22 11:36 | NURSING ---
Pt walked this morning twice around the unit and has been sitting up in chair.
[2023-01-22] MEDS: Acetaminophen 325 MG Tablet 650 MG PO (13:42)
--- NOTE | 2023-01-22 14:36 | CHAPLAIN ---
Type of Pastoral Visit _x__ Initial Visit ___ Follow-up Visit ___ On-call Visit ___ General Patient Visit ___ Spiritual Assessment ___ Family Conference ___ Bereavement ___ Rapid Response ___ Code Blue ___ Other (describe below) Pastoral Care Referral From _x__ Patient ___ Family ___ Nurse ___ Physician ___ General Road Production Manager ___ Rough Carpenter ___ Other (describe below) Sacrament/Intervention _x__ Active listening ___ Anointing ___ Latter-Day ___ Bereavement ___ Communion _x__ Zakiya exploration ___ _x_ Life review _x__ Prayer ___ Reconciliation ___ Sacrament of Sick _x__ Supportive presence ___ Wedding ___ Other (describe below) Pastoral Comments patient was welcoming and gave updates on her health and mentioned her concern for spouse who has cancer; it was discovered that patient and this concreter know many people in common and the discussion became more involved and personal about zakiya, family, and spouse's disease; spouse then entered the room and the conversation was directed also to his care, support, and concerns; both welcomed prayer and acknowledge that zakiya in God and prayer are essential for them; offer of future support given as needed
== END 2023-01-22 15:54 | disposition home or self-care (01) ==
LOC: SDC 16:41 → MS3 16:41
PROVIDERS: Anesthesiology; Urology; Admitting Provider Obstetrics & Gynecology; PCP Family Medicine; Referring Provider Obstetrics & Gynecology; Visit Provider Obstetrics & Gynecology
PROC: 0UT9FZZ Resection of Uterus, Via Natural or Artificial Opening With Percutaneous Endoscopic Assistance (ICD-10-PCS; CPT 58552; principal; 2023-01-21 07:05)
PROC: (CPT 57260; 2023-01-21 07:05)
DX: N81.2 Incomplete uterovaginal prolapse (principal); M35.00 Sjogren syndrome, unspecified; Z79.83 Long term (current) use of bisphosphonates; I10 Essential (primary) hypertension; R94.31 Abnormal electrocardiogram [ECG] [EKG]; N36.41 Hypermobility of urethra; E07.9 Disorder of thyroid, unspecified; N39.3 Stress incontinence (female) (male); Z79.899 Other long term (current) drug therapy; Z79.890 Hormone replacement therapy
CPT/HCPCS: 58552; 57288; 57250; 00944; 36415; 80048; 80053; 82962; 83735; 84443; 84484; 85025; 85027; 86850; 86900; 86901; 88307; 93005; 94668; 96361; 96365; 96366; 99221; 99252; J7120; C1758; G0378; G0463; J2405; J3475

== ENCOUNTER → 2023-02-25 | Outpatient (CLI) | payer MEDICARE, BC, SELFPAY ==
[2023-02-25 18:10] LABS: Anion Gap 8 (5-15); BUN 18 mg/dL (7-18); BUN/Creat Ratio 21.5 RATIO (10-20); Calcium,Total 9.3 mg/dL (8.5-10.1); Chloride 110 mmol/L (98-107); Creatinine, Serum 0.84 mg/dL (0.55-1.02); EST Glomerular Filtration Rate 71 mL/min (>60); Est Glom Filt Rate - Afr Amer 86 mL/min (>60); Glucose 100 mg/dL (74-106); Potassium 3.5 mmol/L (3.5-5.1); Sodium Level 143 mmol/L (136-145)
[2023-02-25 18:26] LABS: Hematocrit 37.1 % (37-47); Hemoglobin 11.9 g/dL (12.0-15.0); Mean Corp Hgb Conc 32.1 g/dL (32-36); Mean Corpuscular Hgb 30.9 pg (27.0-32.0); Mean Corpuscular Volume 96.4 fL (81-99); Mean Platelet Vol. 11.2 fl (6.2-12.0); Platelet Count 205 K/mm3 (150-450); RBC Distribution Width SD 53.2 fl (35.1-43.9); Red Blood Count 3.85 M/mm3 (4.2-5.4); White Blood Count 8.4 K/mm3 (4.4-11.0)
== END | disposition home or self-care (01) ==
LOC: MTLAB 14:57
PROVIDERS: PCP Family Medicine; Visit Provider Urology
DX: K91.0 Vomiting following gastrointestinal surgery (principal)
CPT/HCPCS: 36415; 80048; 85027

== ENCOUNTER 2024-02-14 12:07 | Outpatient (CLI) | payer SELFPAY ==
[2024-02-14 14:21] LABS: SERUM TEARS COLLECTION SPECIMEN PROCESSED
== END 2024-02-14 23:59 | disposition home or self-care (01) ==
PROVIDERS: PCP Family Medicine; Referring Provider Ophthalmology; Visit Provider Ophthalmology
DX: H04.123 Dry eye syndrome of bilateral lacrimal glands (principal)

== ENCOUNTER → 2024-09-15 | Outpatient (CLI) | payer SELFPAY ==
[2024-09-15 12:17] LABS: SERUM TEARS COLLECTION SPECIMEN PROCESSED
== END | disposition home or self-care (01) ==
LOC: LAB 10:15
PROVIDERS: PCP Family Medicine; Referring Provider Ophthalmology; Visit Provider Ophthalmology
DX: H04.123 Dry eye syndrome of bilateral lacrimal glands (principal)